=== PATIENT | male | born 1965 | race Caucasian/White ===

== ENCOUNTER 2016-04-19 20:52 | Emergency (ER) | payer OTHER ==
--- NOTE | 2016-04-19 21:07 | PDOC ---
History of Present Illness - General History Source: Patient, Old Records Exam Limitations: No Limitations <Tristin Eubanks - Last Filed: 04/19/16 21:56> - General History Source: Patient Exam Limitations: No Limitations <Merari Nicholson I - Last Filed: 04/20/16 01:28> - General Chief Complaint: Chest Pain Stated Complaint: CHEST PAIN X 1 WEEK Time Seen by Provider: 04/19/16 21:06 - History of Present Illness Initial Comments: 04/19/16 21:56 The patient is a 51 year old male with a significant past medical history of diabetes and HLD, who presents to the emergency department today for further evaluation of chest pain for one week. The patient reports that his chest pain is not tender to palpation and is not exacerbated by breathing. The patient reports associated cough without sputum and shortness of breath on exertion. The patient notes that recently he has experience swelling of his hands and feet bilaterally as well as weight gain and some shortness of breath secondary to a decrease in his insulin. The patient denies fever, chills, and sweats. The patient denies nausea, vomiting, and diarrhea. PCP: Dr. Cristobal Dumont [phone] PAST MEDICAL HISTORY: no significant history PAST SURGICAL HISTORY: no significant history FAMILY HISTORY: no pertinent history SOCIAL HISTORY: Pt lives with family and is employed. MEDICATIONS: reviewed ALLERGIES: As per nursing notes General: No fevers or chills, no weakness. HEENT: No change in vision. No sore throat, No ear pain CardioVascular: (+) Chest pain and shortness of breath Respiratory:(+) Cough, No wheezing. Gastrointestinal: no nausea, vomiting, diarrhea or constipation, No rectal bleeding Genitourinary: No dysuria, hematuria, or frequency Musculoskeletal: (+) Bilateral hand and foot swelling Neurologic: No headache, vertigo, dizziness or loss of consciousness Psychiatric: nor depression Skin: No rashes or easy bruising Endocrine: no increased thirst (+) Weight gain Allergic: no skin or latex allergy All other systems reviewed and normal General: Well-nourished well-developed individual, no acute distress HEENT: Throat: Normal, tonsils normal, no erythema or exudate Neck: Supple, no meningeal signs, no lymphadenopathy Eyes: Pupils equal reactive and round, extraocular motion intact Chest: Nontender to palpation, Pain not reproducible on palpation of anterior chest wall Cardiac: S1-S2 normal, regular rate and rhythm, no murmurs rubs or gallops Respiratory: Lungs clear to auscultation bilateral Abdomen: Soft, nondistended, normal bowel sounds, nontender to palpation diffusely Extremities: Warm, dry, no cyanosis, clubbing. (+) 1+ non pitting edema bilateral lower extremities. Skin: No rashes Neuro: Alert and oriented x3, nonfocal exam, grossly intact, normal gait Psych: Normal mood and affect Documentation prepared by Tristin Eubanks, acting as medical transcription supervisor for Merari Nicholson MD. (Tristin Eubanks) 04/20/16 01:24 A portion of this note was documented by scribe services under my direction. I have reviewed the details of the note, within reason, and agree with the documentation. The case summary and management plan written by me. Chest x-ray no acute pathology EKG normal sinus rhythm at a rate of 92, normal intervals no acute ST-T wave changes normal EKG Troponin 2 less than 0.03 Assessment and plan: This is a 51-year-old male who comes in complaining of very localized left-sided chest pain that is been constant times one week now. Patient has no associated nausea or diaphoresis however there is been some intermittent mild shortness of breath that is not necessarily related to with a pain. On exam pain is not reproducible with palpation however the rest of the exam was normal. A workup was done including chest x-ray EKG and troponin 2. All of which were normal. Including BNP, d-dimer and troponin Patient has a heart score 3 with the repeat troponin that makes his chance of an acute coronary event within the next 6 weeks less than 1%. Patient was discharged and told to follow-up with his primary care doctor for an outpatient stress test. Patient did have a similar episode of pain in the distant past and a cause was never found that time 04/20/16 01:27 (Merari Nicholson I) Past History <Tristin Eubanks - Last Filed: 04/19/16 21:56> - Past Medical History Diabetes: Yes Hypercholesterolemia: Yes - Immunization History Td Vaccination: Yes Immunization Up to Date: Yes - Psycho/Social/Smoking Cessation Hx Anxiety: No Suicidal Ideation: No Smoking Status: No Smoking History: Never smoked Number of Cigarettes Smoked Daily: 0 Cigars Per Day: 1 'Breaking Loose' booklet given: 03/03/15 <Merari Nicholson I - Last Filed: 04/20/16 01:28> - Past Medical History Allergies/Adverse Reactions: Allergies Allergy/AdvReac Type Severity Reaction Status Date / Time No Known Drug Allergies Allergy Verified 03/03/15 19:53 ENVIRONMENTAL Allergy Uncoded 10/11/11 22:34 Home Medications: Ambulatory Orders Insulin Aspart [Novolog] 1 unit SQ ASDIR PRN 10/11/11 Lisinopril/Hydrochlorothiazide [Lisinopril-Hctz 10-12.5 mg Tab] 1 each PO DAILY 10/11/11 Atorvastatin Ca [Lipitor -] 40 mg PO HS 03/03/15 Ezetimibe [Zetia] 10 mg PO DAILY 03/03/15 Gabapentin [Neurontin] 300 mg PO AM 03/03/15 Gabapentin [Neurontin] 600 mg PO HS 03/03/15 Azelastine/Fluticasone [Dymista Nasal [place]] 23 gm NS DAILY 04/19/16 Review of Systems - Review of Systems Able to Perform ROS?: Yes <Tristin Eubanks - Last Filed: 04/19/16 21:56> - Vital Signs Last Vital Signs Temp Pulse Resp BP Pulse Ox 97.9 F 90 16 139/85 97 04/19/16 20:54 04/19/16 20:54 04/19/16 20:54 04/19/16 20:54 04/19/16 20:54 Heart Score/ECG Review - History History: Slightly suspicious - Electrocardiogram EKG: Normal - Age Age: 45-65 - Risk Factors Risk Factors Heart Score: Yes Hx Hypercholesterolemia, Yes Hx Hypertension, Yes Hx Diabetes, Yes Positive family hx of cardiac disease Based on the list above the patient has:: >/=3 risk factors or Hx atherosclerotic disease - Troponin Troponin: </= normal limit - Score Heart Score - Total: 3 <Merari Nicholson I - Last Filed: 04/20/16 01:28> ED Treatment Course - LABORATORY CBC & Chemistry Diagram: 04/19/16 21:49 04/19/16 21:49 <Tristin Eubanks - Last Filed: 04/19/16 21:56> - LABORATORY CBC & Chemistry Diagram: 04/19/16 21:49 04/19/16 21:49 <Merari Nicholson I - Last Filed: 04/20/16 01:28> - ADDITIONAL ORDERS Additional order review: Laboratory Results 04/19/16 04/19/16 04/19/16 21:49 21:49 21:49 D-Dimer Sodium Potassium Chloride Carbon Dioxide Anion Gap BUN Creatinine Creat Clearance w eGFR Random Glucose Calcium Total Bilirubin AST ALT Alkaline Phosphatase Creatine Kinase 483 H CK-MB (CK-2) Cancelled 9.8 H CK-MB (CK-2) Rel Index 2.0 Troponin I < 0.03 L B-Natriuretic Peptide 32.15 Total Protein Albumin 04/19/16 04/19/16 21:49 21:49 D-Dimer < 200 Sodium 138 Potassium 4.1 Chloride 106 Carbon Dioxide 24 Anion Gap 8 BUN 18 Creatinine 1.2 Creat Clearance w eGFR > 60 Random Glucose 157 H Calcium 9.0 Total Bilirubin 0.4 AST 21 ALT 25 Alkaline Phosphatase 67 Creatine Kinase CK-MB (CK-2) CK-MB (CK-2) Rel Index Troponin I B-Natriuretic Peptide Total Protein 6.1 L Albumin 4.0 04/19/16 21:49 RBC 5.15 MCV 78.1 L MCHC 32.8 RDW 13.1 MPV 8.4 Neutrophils % 59.6 Lymphocytes % 30.4 Monocytes % 7.1 Eosinophils % 2.1 Basophils % 0.8 - RADIOLOGY Radiology Studies Ordered: Category Date Time Status CHEST X-RAY PORTABLE* [RAD] Stat Radiology 04/19/16 21:36 Taken *DC/Admit/Observation/Transfer <Tristin Eubanks - Last Filed: 04/19/16 21:56> <Merari Nicholson I - Last Filed: 04/20/16 01:28> Diagnosis at time of Disposition: Chest wall pain - Discharge Dispostion Disposition: HOME Condition at time of disposition: Good - Patient Instructions Additional Instructions: Is important that you follow-up with your primary care doctor and have an outpatient stress test Your workup was normal here in the emergency room. Your workup included a chest x-ray EKG and lab work. Return to the emergency department immediately with ANY new, persistent or worsening symptoms. Continue any medications as previously prescribed by your physician. You should follow up with your primary doctor as soon as possible regarding today's emergency department visit. . Please make sure your doctor reviews the results of your emergency evaluation. Thank you for coming to the Emergency Department today for your care. It was a pleasure to see you today. Please note that your evaluation is INCOMPLETE until you follow-up with your doctor.
[2016-04-19 21:22] VITALS: BP 139/85; PULSE 90; TEMP 97.9; BMI 30.2
[2016-04-19 22:03] LABS: BASOPHIL 0.8 % (0-2.0); EOSINOPHIL 2.1 % (0-4.5); MCH 25.6 pg (25.7-33.7); MCHC 32.8 g/dl (32.0-35.9); MEAN CELL VOLUME 78.1 fl (80-96); MEAN PLT VOLUME 8.4 fl (7.5-11.1); NEUTROPHILS 59.6 % (42.8-82.8); PLATELET COUNT 241 K/MM3 (134-434); RDW 13.1 % (11.9-15.9); WHITE BLOOD COUNT 11.9 K/mm3 (4.0-10.0)
[2016-04-19 22:17] LABS: ALK PHOS 67 U/L (32-92); ANION GAP 8 (8-16); CO2 24 mmol/L (22-28); CPK(DFH) 483 IU/L (38-174); CREATININE 1.2 mg/dl (0.6-1.3); GLUCOSE,RANDOM 157 mg/dl (74-106); SGOT/AST 21 U/L (10-42); SGPT/ALT 25 U/L (10-40); TOT PROT 6.1 g/dl (6.4-8.3)
[2016-04-19 22:28] LABS: BILIRUBIN,TOTAL 0.4 mg/dl (0.2-1.0)
[2016-04-19 22:29] LABS: TROPONIN I (DFP) < 0.03 ng/ml (0.03-0.50)
[2016-04-19 22:31] LABS: CK MB 9.8 ng/ml (0.3-4.0)
[2016-04-20 02:16] LABS: TROPONIN I < 0.02 ng/ml (0.00-0.05)
--- NOTE | 2016-04-21 10:32 | EKG ---
Test Reason : Blood Pressure : / mmHG Vent. Rate : 092 BPM Atrial Rate : 092 BPM P-R Int : 142 ms QRS Dur : 096 ms QT Int : 362 ms P-R-T Axes : 036 -22 019 degrees QTc Int : 447 ms NORMAL SINUS RHYTHM NON-SPECIFIC INTRA-VENTRICULAR CONDUCTION DELAY NO PREVIOUS ECGS AVAILABLE Confirmed by NIKI GAY MD ([id number]) on 04/21/2016 10:32:36 AM Referred By: MD VILA Confirmed By:NIKI GAY MD
== END 2016-04-20 02:39 | disposition home or self-care (01) ==
LOC: FER 20:52
DX: R07.89 Other chest pain (principal); E11.9 Type 2 diabetes mellitus without complications; E78.00 Pure hypercholesterolemia, unspecified; Z79.4 Long term (current) use of insulin
CPT/HCPCS: 36415; 71010-TC; 80053; 82550; 82553; 83880; 84484; 85025; 85379; 93005; 99284-25

== ENCOUNTER 2017-11-24 13:43 | Emergency (ER) | payer OTHER ==
[2017-11-24 14:25] VITALS: BP 136/88; PULSE 89; TEMP 98.6; BMI 33.0
--- NOTE | 2017-11-24 14:37 | PDOC ---
History of Present Illness - History of Present Illness Initial Comments: 11/24/17 15:35 The patient is a 52 year old with a history of HTN, HLD, DM who presents for evaluation of shortness of breath and muscle cramps. The patient notes persistent shortness of breath with associated muscle cramps over the past 1-3 months. The patient states that he was visiting his microwave technician today who recommended the patient present to the ED for further evaluation. The patient states that he has also been having increased urination which is baseline for him and notes that his blood sugars have been poorly controlled and was at his microwave technician's office getting his insulin pump calibrated today. He otherwise denies fevers, chills, chest pain, nausea, vomiting, or changes with bowel movements. <Rodolfo Zhou - Last Filed: 11/25/17 10:46> <Eboni Olivia - Last Filed: 11/27/17 07:48> - General Chief Complaint: Muscle Cramping Stated Complaint: MUSCLE CRAMPS AND SOB X 2-3 MNTHS Time Seen by Provider: 11/24/17 14:37 Past History - Past Medical History COPD: No DVT: No Diabetes: Yes HTN: Yes Hypercholesterolemia: Yes - Immunization History Td Vaccination: Yes Immunization Up to Date: Yes - Suicide/Smoking/Psychosocial Hx Smoking Status: No Smoking History: Unknown if ever smoked Number of Cigarettes Smoked Daily: 0 Cigars Per Day: 1 Information on smoking cessation initiated: No 'Breaking Loose' booklet given: 03/03/15 Hx Alcohol Use: No Drug/Substance Use Hx: No Substance Use Type: None <Rodolfo Zhou - Last Filed: 11/25/17 10:46> <Eboni Olivia - Last Filed: 11/27/17 07:48> - Past Medical History Allergies/Adverse Reactions: Allergies Allergy/AdvReac Type Severity Reaction Status Date / Time No Known Drug Allergies Allergy Verified 11/24/17 13:45 ENVIRONMENTAL Allergy Uncoded 11/24/17 13:45 Home Medications: Ambulatory Orders Insulin Aspart [Novolog] 1 unit SQ ASDIR PRN 10/11/11 Lisinopril/Hydrochlorothiazide [Lisinopril-Hctz 10-12.5 mg Tab] 1 each PO DAILY 10/11/11 Atorvastatin Ca [Lipitor -] 40 mg PO HS 03/03/15 Ezetimibe [Zetia] 10 mg PO DAILY 03/03/15 Gabapentin [Neurontin] 300 mg PO AM 03/03/15 Gabapentin [Neurontin] 600 mg PO HS 03/03/15 Azelastine/Fluticasone [Dymista Nasal [place]] 23 gm NS DAILY 04/19/16 Review of Systems - Review of Systems Comments:: 11/24/17 15:47 Constitutional: Muscle cramps. No fevers, chills, fatigue, HEENT: No Rhinorrhea, nasal congestion, visual changes Cardiovascular: No chest pain, syncope, palpitations, lightheadedness Respiratory: SOB. No Cough, Hemoptysis, Gastrointestinal: No Nausea, Vomiting, Constipation, Diarrhea, Melena Genitourinary: Increased urinary frequency. No Dysuria, Urgency, Hesitancy, Hematuria, Flank pain Musculoskeletal: No Myalgia, arthralgia Skin: No rashes, itching, bruising, pallor Neurologic: No Headache, Dizziness, Numbness, Weakness, or Tingling Psychiatric: No Hallucinations. No SI or HI <Rodolfo Zhou - Last Filed: 11/25/17 10:46> *Physical Exam - Vital Signs Last Vital Signs Temp Pulse Resp BP Pulse Ox 98.6 F 89 18 136/88 100 11/24/17 13:45 11/24/17 13:45 11/24/17 13:45 11/24/17 13:45 11/24/17 13:45 - Physical Exam Comments: 11/24/17 15:48 General Appearance: Nourished. No Apparent Distress HEENT: No Pharyngeal Erythema, Tonsillar Exudate, Tonsillar Erythema Neck: No Cervical Lymphadenopathy Respiratory/Chest: Lungs Clear, Normal Breath Sounds. No Crackles, Rales, Rhonchi, Wheezing Cardiovascular: Regular Rhythm, Regular Rate. No Murmur, Gallops, Rubs Gastrointestinal/Abdominal: Normal Bowel Sounds, Soft. No Guarding, Rebound, Tenderness Musculoskeletal: No CVA Tenderness Extremity: Normal Capillary Refill Integumentary: Normal Color, Dry, Warm Neurologic: Fully Oriented, Alert, Normal Mood/Affect, Normal Response, <Rodolfo Zhou - Last Filed: 11/25/17 10:46> - Vital Signs Last Vital Signs Temp Pulse Resp BP Pulse Ox 98.6 F 89 18 136/88 100 11/24/17 13:45 11/24/17 13:45 11/24/17 13:45 11/24/17 13:45 11/24/17 13:45 <Eboni Olivia - Last Filed: 11/27/17 07:48> ED Treatment Course - LABORATORY CBC & Chemistry Diagram: 11/24/17 16:45 11/24/17 15:05 <WinnieRodolfo - Last Filed: 11/25/17 10:46> - LABORATORY CBC & Chemistry Diagram: 11/24/17 16:45 11/24/17 15:05 - ADDITIONAL ORDERS Additional order review: 11/24/17 11/24/17 16:45 15:05 RBC 5.00 5.73 H MCV 79.8 L 79.2 L MCHC 33.0 32.6 RDW 12.7 12.3 MPV 9.0 8.8 Neutrophils % 62.9 65.8 Lymphocytes % 28.8 27.2 Monocytes % 5.8 5.1 Eosinophils % 2.0 1.5 Basophils % 0.5 0.4 - Medications Given in the ED: ED Medications Discontinued Medications Generic Name Dose Route Start Last Admin Trade Name Freq PRN Reason Stop Dose Admin Acetaminophen 1,000 mg 11/24/17 14:48 11/24/17 15:41 Tylenol - PO 11/24/17 14:49 1,000 mg ONCE ONE Administration Al Hydroxide/Mg Hydroxide 30 ml 11/24/17 16:37 11/24/17 16:54 Mylanta Oral Suspension - PO 11/24/17 16:38 30 ml ONCE ONE Administration Sodium Chloride 1,000 mls @ 1,000 mls/hr 11/24/17 14:48 11/24/17 15:41 Normal Saline - IV 11/24/17 15:47 1,000 mls/hr ASDIR STA Administration Famotidine/Sodium Chloride 20 mg in 50 mls @ 100 mls/hr 11/24/17 16:37 16:54 Pepcid 20 Mg Premixed Ivpb - IVPB 11/24/17 17:06 100 mls/hr ONCE ONE Administration <Eboni Olivia - Last Filed: 11/27/17 07:48> Medical Decision Making - Medical Decision Making 11/24/17 15:48 The patient is a 52 year old with a history of HTN, HLD, DM who presents for evaluation of shortness of breath and muscle cramps. Differential includes but is not limited to: DKA, Hyperglycemia, Infectious, metabolic derangement. Given the patient's history and physical exam, we will obtain a cbc, cmp, vbg, acetone, ua, chest plain film to evaluate further. We will treat the patient with iv fluids, tylenol and continue to monitor and reassess while here in the ED. 11/24/17 17:46 CBC, cmp, vbg, acetone, ua is unremarkable. Troponin is unremarkable. Chest plain film is unremarkable. The patient reports improvement in his symptoms. We are comfortable discharging the patient home with primary care provider follow up. We discussed the results, plan, and return precautions with the patient who voiced understanding and is agreeable with the plan. <Rodolfo Zhou - Last Filed: 11/25/17 10:46> *DC/Admit/Observation/Transfer <Rodolfo Zhou - Last Filed: 11/25/17 10:46> <Eboni Olivia - Last Filed: 11/27/17 07:48> Diagnosis at time of Disposition: Shortness of breath, Dizziness - Discharge Dispostion Disposition: HOME Condition at time of disposition: Stable - Patient Instructions Printed Discharge Instructions: DI for Shortness of Breath, DI for Chest Pain Additional Instructions: Please return to the ER if you experience concerning or worsening symptoms including worsening difficulty breathing, weakness, or chest pain. Your lab results were normal here in the ER. Please call to schedule a follow up appointment with your primary care provider within 2-3 days to discuss your ER visit and further management of your symptoms. - Post Discharge Activity Forms/Work/School Notes: Back to Work
[2017-11-24] MEDS ORDERED: ACETAMINOPHEN 500 MG TABLET (FP) PO ONE (14:48)
[2017-11-24] MEDS ORDERED: SODIUM CHLORIDE 1,000 ML IV STA (14:48)
[2017-11-24 15:27] LABS: BASO % 0.4 % (0-2.0); EOS % 1.5 % (0-4.5); HEMATOCRIT 45.4 % (35.4-49); HEMOGLOBIN 14.8 GM/dl (11.7-16.9); LYMPH % 27.2 % (8-40); MCH 25.8 pg (25.7-33.7); MCHC 32.6 g/dl (32.0-35.9); MEAN CELL VOLUME 79.2 fl (80-96); MEAN PLT VOLUME 8.8 fl (7.5-11.1); MONO % 5.1 % (3.8-10.2); NEUT % 65.8 % (42.8-82.8); PLATELET COUNT 316 K/MM3 (134-434); RBC 5.73 M/mm3 (4.00-5.60); RDW 12.3 % (11.9-15.9); WHITE BLOOD COUNT 13.1 K/mm3 (4.0-10.8)
[2017-11-24] MEDS ORDERED: ACETAMINOPHEN 500 MG TABLET (FP) ONE (15:32)
[2017-11-24 15:36] LABS: PH,URINE 5.5 (4.5-8); URINE APPEARANCE Clear; URINE BILIRUBIN Negative (NEGATIVE); URINE COLOR Yellow; URINE GLUCOSE (UA) Trace (NEGATIVE); URINE KETONE Negative (NEGATIVE); URINE NITRITE Negative (NEGATIVE); URINE PROTEIN Negative (NEGATIVE); URINE UROBILINOGEN 0.2 (0.2-1.0)
[2017-11-24 15:42] LABS: URINE LEUK ESTERASE TRACE (NEGATIVE)
[2017-11-24 15:46] LABS: ALBUMIN 4.3 g/dl (3.5-5.0); ALK PHOS 82 U/L (32-92); ANION GAP 13 MMOL/L (8-16); BILIRUBIN,TOTAL 0.3 mg/dl (0.2-1.0); BLOOD UREA NITROGEN 18 mg/dl (7-18); CALCIUM 9.5 mg/dl (8.4-10.2); CHLORIDE 99 mmol/L (98-107); CO2 25 mmol/L (22-28); GLUCOSE,RANDOM 190 mg/dl (74-106); POTASSIUM 4.1 mmol/L (3.5-5.1); SGOT/AST 20 U/L (10-42); SGPT/ALT 27 U/L (10-40); SODIUM 137 mmol/L (136-145)
[2017-11-24 15:57] LABS: TOT PROT 7.2 g/dl (6.4-8.3)
[2017-11-24 16:26] LABS: VENOUS PC02 50.4 mmHg (38-52); VENOUS PH 7.33 (7.32-7.42); VENOUS PO2 35.7 mmHg (28-48)
[2017-11-24] MEDS ORDERED: MAG HYDROX/AL HYDROX/SIMETH 30 ML UNIT-DOSE CUP PO ONE (16:37)
[2017-11-24] MEDS ORDERED: FAMOTIDINE 20 MG/50 ML IVPB 20 MG/50 ML MG IVPB ONE ×2 (16:37→16:50)
[2017-11-24] MEDS ORDERED: MAG HYDROX/AL HYDROX/SIMETH 30 ML UNIT-DOSE CUP ONE (16:50)
[2017-11-24 17:05] LABS: BASO % 0.5 % (0-2.0); HEMATOCRIT 39.9 % (35.4-49); HEMOGLOBIN 13.2 GM/dl (11.7-16.9); LYMPH % 28.8 % (8-40); MCH 26.3 pg (25.7-33.7); MEAN CELL VOLUME 79.8 fl (80-96); MONO % 5.8 % (3.8-10.2); NEUT % 62.9 % (42.8-82.8); PLATELET COUNT 254 K/MM3 (134-434); RDW 12.7 % (11.9-15.9); WHITE BLOOD COUNT 12.7 K/mm3 (4.0-10.8)
[2017-11-24 17:23] LABS: EPI CELLS FEW /HPF; URINE BACTERIA FEW /hpf (NEGATIVE)
--- NOTE | 2017-11-24 17:38 | PDOC ---
Attending Attestation - Resident Resident Name: Rodolfo Zhou - ED Attending Attestation I have performed the following: I have examined & evaluated the patient, The case was reviewed & discussed with the resident, I agree w/resident's findings & plan - HPI HPI: 11/24/17 17:38 52 year old with a history of HTN, HLD, DM who presents for evaluation of shortness of breath and muscle cramps x 1-3 months. noted to have elevated blood sugar with recent starting of insulin pump. no signs of infection, fevers or chills +left sided CP since this morning, gets cp occasionally a/w sob and worse with waking up in the morning. also occasionally gets acid reflux and epigastric pain a/w nausea, worse with certain foods. last episode 1 week ago. 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 11/24/17 19:44 - Physicial Exam PE: 11/24/17 19:43 NAD, well appearing, MMM, nl conjunctiva, anicteric; neck supple. lungs clear, RRR, abdomen soft nontender. SNIDER x4, no focal neuro deficits. No peripheral edema. normal color for ethnicity, WWP. no calf tenderness. - Medical Decision Making 11/24/17 19:45 52 year old with a history of HTN, HLD, DM who presents for evaluation of shortness of breath and muscle cramps x 1-3 months. intermittent left cp, nonradiating. occasional epigastric pain, nausea. recently started insulin pump which is functioning. DDx, dehydration, electrolyte/metabolic derangements, ACS, costochondritis. DKA , HHS, UTI, GERD, PUD, esophageal spasm. low suspicion for DVT, as no lower extrem pain or sx or objective findings. Vitals wnl. normotensive. EKG normal sinus rhythm, no interval abnormalities, narrow QRS, ST and T wave segments and morphology normal. Nonspecific T wave abnormalities, flattening in lead III Trop neg x1, reassuring less likely ACS/angina. Has had intermittent CP intermittently chronically. Sugars here ~190, no evidence of dka, w/o acidosis or ketones. No urinary sx, trace leuk esterase, defer abx treatment w/o symptoms to clinically match. diff with normal RBC/WBCs <10 Remainder of lytes and labs wnl, with mild nonspecific leukocytosis ~13K without clear signs of infection or fevers, so no abx for now. CXR clear, no signs of infection. PMD followup, cards referral and f/u with elevated sugars and recurrent CP in left chest. Pt informed of my clinical impression, treatment recommendations and disposition plan. All questions answered to patient's satisfaction and expressed understanding and comfort with this. Reasons for returning to the ED sooner discussed with the patient otherwise, follow up with primary care physician. At the time of discharge, the patient is alert, clinically improved, tolerating po and verbalizes understanding of instructions. 11/24/17 19:46 11/24/17 19:48
--- NOTE | 2017-11-25 16:44 | EKG ---
Test Reason : Blood Pressure : / mmHG Vent. Rate : 088 BPM Atrial Rate : 088 BPM P-R Int : 144 ms QRS Dur : 096 ms QT Int : 356 ms P-R-T Axes : 050 -13 023 degrees QTc Int : 430 ms NORMAL SINUS RHYTHM NORMAL ECG WHEN COMPARED WITH ECG OF 19-APR-2016 21:02, NO SIGNIFICANT CHANGE WAS FOUND Confirmed by Jayson Morgan ([id number]) on 11/25/2017 4:44:17 PM Referred By: GAURANG Confirmed By:Jayson Morgan
== END 2017-11-24 18:37 | disposition home or self-care (01) ==
LOC: FER 13:43
PROC: 3E033GC Introduction of Other Therapeutic Substance into Peripheral Vein, Percutaneous Approach (ICD-10-PCS; principal; 2017-11-24)
PROC: 3E0337Z Introduction of Electrolytic and Water Balance Substance into Peripheral Vein, Percutaneous Approach (ICD-10-PCS; 2017-11-24)
DX: R06.02 Shortness of breath (principal); R42 Dizziness and giddiness; I10 Essential (primary) hypertension; E78.5 Hyperlipidemia, unspecified; E11.9 Type 2 diabetes mellitus without complications
CPT/HCPCS: 36415; 71046-TC-FY; 80053; 81003; 81015; 82009; 82803; 84443; 84484; 85025; 93005; 99283-25; J7030